=== PATIENT | female | born 1985 | race Caucasian/White ===

== ENCOUNTER 2017-07-09 23:47 | Emergency (ER) | payer MEDICAID ==
[~2017-07-09] VITALS: Ht 165.1 cm; Wt 96.4 kg
[~2017-07-09 23:47] MED LIST: AZIT250T74 PO; LISI-363 PO; MOBI15TA PO; TRAM50 PO
[2017-07-09 23:54] VITALS: BP 196/99; PULSE 116; RESP 18; TEMP 97; O2SAT 98
--- NOTE | 2017-07-10 00:24 | PD ---
HPI Chief Complaint: Flank/Kidney Pain Time Seen by Provider: 00:19 Travel History International Travel<30 days: No Contact w/Intl Traveler<30days: No Traveled to known affect area: No History of Present Illness HPI The patient is a 31-year-old female who complains of sudden onset of sharp left flank pain radiating to the left UVJ/pelvic area at 11 PM tonight. The patient does have a history of hysterectomy and cannot be . She also had a right oophorectomy. This pain feels similar to a ruptured right ovarian cyst that she has had in the past. She has never had a kidney stone but almost everybody in her family has had one. She denies any dysuria, frequency or urgency. He denies any fever. PFSH Past Medical History Blood Disorders: No Depression: Yes Diminished Hearing: No Hypertension: Yes Psychiatric: Yes (sent to act 03/19) ?: Not : 2 Para: 2 Tubal Ligation: Yes Past Surgical History Section: Yes (X 2) Cholecystectomy: Yes Gynecologic Surgery: Yes (LEEP) Hysterectomy: Yes Social History Alcohol Use: No Tobacco Use: No Substance Use: No Allergies-Medications (Allergen,Severity, Reaction): Coded Allergies: prochlorperazine (Unverified Allergy, Severe, EPS, 02/08/17) Reported Meds & Prescriptions Reported Meds & Active Scripts Active Ultram (Tramadol HCl) 50 Mg Tab 50 Mg PO Q6H PRN FOR PAIN Mobic (Meloxicam) 15 Mg Tab 15 Mg PO DAILY Zithromax (Azithromycin) 250 Mg Tab 4 Tab PO ONCE Reported Lisinopril 20 Mg Tab 20 Mg PO DAILY Review of Systems Except as stated in HPI: all other systems reviewed are Neg Physical Exam Narrative GENERAL: The patient is alert, oriented 3 in moderate apparent distress with her left flank/pelvic pain. Her vital signs show blood pressure 196/99 with heart rate of 116 but otherwise normal. SKIN: Focused skin assessment warm/dry. HEAD: Atraumatic. Normocephalic. EYES: Pupils equal and round. No scleral icterus. No injection or drainage. ENT: No nasal bleeding or discharge. Mucous membranes pink and moist. NECK: Trachea midline. No JVD. CARDIOVASCULAR: Regular rate and rhythm. No murmur appreciated. RESPIRATORY: No accessory muscle use. Clear to auscultation. Breath sounds equal bilaterally. GASTROINTESTINAL: Abdomen soft, with tenderness to direct palpation to the left of the umbilicus and left UVJ/pelvic area, nondistended. Hepatic and splenic margins not palpable. No guarding or rebound is present. MUSCULOSKELETAL: No obvious deformities. No clubbing. No cyanosis. No edema. NEUROLOGICAL: Awake and alert. No obvious cranial nerve deficits. Motor grossly within normal limits. Normal speech. PSYCHIATRIC: Appropriate mood and affect; insight and judgment normal. Data Data Last Documented VS Vital Signs Date Time Temp Pulse Resp B/P (MAP) Pulse Ox O2 Delivery O2 Flow Rate FiO2 07/10/17 00:19 20 07/09/17 23:54 97.0 116 196/99 (131) 98 Orders Orders Complete Blood Count With Diff (07/10/17:19) Basic Metabolic Panel (Bmp) (07/10/17 00:19) Urinalysis - C+S If Indicated (07/10/17:19) Ct Abd/Pel W/O Iv Contrast (07/10/17:19) Ecg Monitoring (07/10/17:19) Iv Access Insert/Monitor (07/10/17:19) Hydromorphone Pf Inj (Dilaudid Pf Inj) (07/10/17 00:30) Ketorolac Inj (Toradol Inj) (07/10/17 00:30) Ondansetron Inj (Zofran Inj) (07/10/17 00:30) Sodium Chloride 0.9% Flush (Ns Flush) (07/10/17 00:30) Urine Culture (07/10/17 00:15) Labs Laboratory Tests Test 07/10/17 00:15 White Blood Count 8.3 TH/MM3 Red Blood Count 4.11 MIL/MM3 Hemoglobin 12.0 GM/DL Hematocrit 37.5 % Mean Corpuscular Volume 91.1 FL Mean Corpuscular Hemoglobin 29.2 PG Mean Corpuscular Hemoglobin Concent 32.1 % Red Cell Distribution Width 13.4 % Platelet Count 360 TH/MM3 Mean Platelet Volume 7.7 FL Neutrophils (%) (Auto) 53.0 % Lymphocytes (%) (Auto) 36.3 % Monocytes (%) (Auto) 6.5 % Eosinophils (%) (Auto) 2.7 % Basophils (%) (Auto) 1.5 % Neutrophils # (Auto) 4.5 TH/MM3 Lymphocytes # (Auto) 3.0 TH/MM3 Monocytes # (Auto) 0.5 TH/MM3 Eosinophils # (Auto) 0.2 TH/MM3 Basophils # (Auto) 0.1 TH/MM3 CBC Comment DIFF FINAL Differential Comment Urine Color YELLOW Urine Turbidity SLIGHT Urine pH 7.5 Urine Specific [place] 1.011 Urine Protein NEG mg/dL Urine Glucose (UA) NEG mg/dL Urine Ketones NEG mg/dL Urine Occult Blood NEG Urine Nitrite NEG Urine Bilirubin NEG Urine Leukocyte Esterase NEG Urine RBC 0-3 /hpf Urine WBC 3-5 /hpf Urine Squamous Epithelial Cells 0-5 /hpf Urine Bacteria MOD /hpf Microscopic Urinalysis Comment CULTURE INDICATED Blood Urea Nitrogen 9 MG/DL Creatinine 0.72 MG/DL Random Glucose 95 MG/DL Calcium Level 8.7 MG/DL Sodium Level 137 MEQ/L Potassium Level 3.5 MEQ/L Chloride Level 100 MEQ/L Carbon Dioxide Level 31.5 MEQ/L Anion Gap 6 MEQ/L Estimat Glomerular Filtration Rate 95 ML/MIN [facility] Medical Decision Making Medical Screen Exam Complete: Yes Emergency Medical Condition: Yes Medical Record Reviewed: Yes Interpretation(s) The CT abdomen/pelvis without IV contrast shows no acute findings. She is apparently status post cholecystectomy. The CBC is normal. Urinalysis is normal except for moderate bacteria. Culture is indicated on the urine. The basic metabolic profile is normal. Differential Diagnosis Urinary stone, ovarian cyst, ovarian torsion-unlikely, diverticulitis, colitis, urinary tract infection today cystitis, UTI-pyelonephritis Narrative Course The patient has bacteria in the urine and her urine is borderline normal for white cells-3-5 per high-power field. Culture is indicated and she will be treated as a urinary tract infection with Cipro 500 mg twice daily for 10 days. She will get Percocet 5 for pain and Zofran for nausea. She needs to follow- up with her primary care physician and increased liquid intake. Additional Instructions: It is important to increase your fluid intake to establish a good flow across your kidneys. The Percocet can make you dizzy so do not drink alcohol or drive on the Percocet. Zofran is one tablet every 4-6 hours as needed for nausea. Follow-up with your primary care physician next week. Med/Other Pt SpecificInfo: Prescription(s) given Scripts Ciprofloxacin (Cipro) 500 Mg Tab 500 MG PO BID for Infection for 10 Days, #20 TAB 0 Refills Prov: Jayro Gallagher MD 07/10/17 Ondansetron (Zofran) 4 Mg Tab 4 MG PO Q6HR Y for NAUSEA OR VOMITING, #30 TAB 0 Refills Prov: Jayro Gallagher MD 07/10/17 Oxycodone-Acetaminophen (Percocet) 5-325 mg Tab 1-2 TAB PO Q6H Y for PAIN, #30 TAB 0 Refills Prov: Jayro Gallagher MD 07/10/17 Disposition: 01 DISCHARGE HOME Condition: Stable Jayro Gallagher MD Jul 10, 2017 00:24
[2017-07-10] MEDS ORDERED: SODIUM CHLORIDE 0.9% FLUSH 10 ML FLUSH IVF PRN (00:30)
[2017-07-10] MEDS ORDERED: ONDANSETRON HCL 4 MG/2 ML VIAL IV PUSH ONE (00:30)
[2017-07-10] MEDS ORDERED: HYDROmorphone HCL PF 2 MG/ML VIAL IVS ONE (00:30)
[2017-07-10] MEDS ORDERED: KETOROLAC TROMETHAMINE 30 MG/ML (IVP) VIAL IV PUSH ONE (00:30)
[2017-07-10 00:33] LABS: BILIRUBIN, URINE NEG (NEG); BLOOD, URINE NEG (NEG); GLUCOSE,URINE NEG (NEG); KETONE, URINE NEG (NEG); NITRITE,URINE NEG (NEG); PH, URINE 7.5 (5.0-8.5); URINE LEUKOCYTE ESTERASE NEG (NEG)
[2017-07-10 00:35] LABS: AUTOMATED NEUTROPHIL # 4.5 TH/MM3 (1.8-7.7); BASOPHIL # 0.1 TH/MM3 (0-0.2); BASOPHIL % 1.5 % (0.0-2.0); EOSINOPHIL # 0.2 TH/MM3 (0-0.4); EOSINOPHIL % 2.7 % (0.0-4.0); HEMATOCRIT 37.5 % (35.0-46.0); LYMPH % 36.3 % (9.0-44.0); MEAN CELL VOLUME 91.1 FL (80.0-100.0); MEAN CORPUSCULAR HEMOGLOBIN 29.2 PG (27.0-34.0); MEAN CORPUSCULAR HGB CONC 32.1 % (32.0-36.0); MEAN PLATELET VOLUME 7.7 FL (7.0-11.0); MONO % 6.5 % (0.0-8.0); MONOCYTE # 0.5 TH/MM3 (0-0.9); PLATELET COUNT 360 TH/MM3 (150-450); RED BLOOD COUNT 4.11 MIL/MM3 (4.00-5.30); RED CELL DISTRIBUTION WIDTH 13.4 % (11.6-17.2); WHITE BLOOD COUNT 8.3 TH/MM3 (4.0-11.0)
[2017-07-10 00:40] LABS: URINE COLOR YELLOW (YELLW/STRAW)
[2017-07-10 00:41] LABS: BACTERIA, URINE MOD /hpf; RBC, URINE 0-3 /hpf (0-3); SQUAMOUS EPITHELIAL CELL URINE 0-5 /hpf (0-5)
--- NOTE | 2017-07-10 00:55 | RADRPT ---
EXAM DATE/TIME: 07/10/2017 00:31 [facility] COMPARISON: No previous studies available for comparison. INDICATIONS : Left lower quadrant pain ORAL CONTRAST: No oral contrast ingested. RADIATION DOSE: 23.30 CTDIvol (mGy) MEDICAL HISTORY : Hypertension. SURGICAL HISTORY : Cholecystectomy. partial hysterectomy ENCOUNTER: Initial ACUITY: 1 day PAIN SCALE: 9/10 LOCATION: Left lower quadrant TECHNIQUE: Volumetric scanning of the abdomen and pelvis was performed. Using automated exposure control and ad justment of the mA and/or kV according to patient size, radiation dose was kept as low as reasonably achievable to obtain optimal diagnostic quality images. DICOM format image data is available electro nically for review and comparison. The lack of IV contrast limits the diagnosis for certain organ pa thology. FINDINGS: LOWER LUNGS: The visualized lower lungs are clear. LIVER: Homogeneous density without lesion. There is no dilation of the biliary tree. No gallbladder, surgi cortez removed.. SPLEEN: Normal size without lesion. PANCREAS: Within normal limits. KIDNEYS: Normal in size and shape. There is no mass, stone, or hydronephrosis. ADRENAL GLANDS: Within normal limits. VASCULAR: There is no aortic aneurysm. BOWEL/MESENTERY: The stomach, small bowel, and colon demonstrate no acute abnormality. There is no free intraperitone al air or fluid. The appendix is unremarkable. There is stool throughout the colon. ABDOMINAL WALL: Within normal limits. RETROPERITONEUM: There is no lymphadenopathy. BLADDER: No wall thickening or mass. REPRODUCTIVE: Within normal limits. INGUINAL: There is no lymphadenopathy or hernia. MUSCULOSKELETAL: Within normal limits for patient age. CONCLUSION: 1. No calcified renal stones or hydronephrosis. 2. Status post cholecystectomy. 3. Unremarkable examination. Aureliano Araujo MD on July 10, 2017 at 0:50 Board Certified Radiologist. This report was verified electronically.
[2017-07-10 01:03] VITALS: RESP 20
[2017-07-10 01:06] LABS: BICARBONATE 31.5 MEQ/L (21.0-32.0); CALCIUM 8.7 MG/DL (8.5-10.1)
[2017-07-10 01:10] LABS: CREATININE 0.72 MG/DL (0.50-1.00)
[2017-07-10] MEDS ORDERED: PERC5TAB12 PO (02:01)
[2017-07-10] MEDS ORDERED: CIPR-9 PO (02:01)
[2017-07-10] MEDS ORDERED: ZOFR4TAB PO (02:01)
[2017-07-10] MEDS ORDERED: CIPROFLOXACIN 500 MG TAB PO ONE (02:15)
[2017-07-10 02:22] VITALS: BP 153/99
== END 2017-07-10 02:39 | disposition home or self-care (01) ==
LOC: PHED 23:47
DX: N30.90 Cystitis, unspecified without hematuria (principal); B96.20 Unspecified Escherichia coli [E. coli] as the cause of diseases classified elsewhere; I10 Essential (primary) hypertension
CPT/HCPCS: 74176; 80048; 81001; 85025; 87077; 87086; 87186; 96374; 96375; 99285; J1170; J1885; J2405

== ENCOUNTER 2017-08-02 07:47 | Emergency (ER) | payer MEDICAID ==
[~2017-08-02] VITALS: Ht 167.6 cm; Wt 93.4 kg
[~2017-08-02 07:47] MED LIST changes: +CIPR-9 PO; +PERC5TAB12 PO; +ZOFR4TAB PO
[2017-08-02 07:51] VITALS: BP 195/123; PULSE 120; RESP 18; TEMP 97.6; O2SAT 99
[2017-08-02] MEDS ORDERED: HYDR-3583 PO (08:08)
[2017-08-02] MEDS ORDERED: IBUP1TAB7 PO (08:08)
[2017-08-02] MEDS ORDERED: CITA20TA4 PO (08:08)
[2017-08-02] MEDS ORDERED: SODIUM CHLOR 0.9% 1000 ML INJ 1,000 ML IV SCH (08:16)
[2017-08-02 08:20] VITALS: BP 156/104; PULSE 132; RESP 22; O2SAT 98
[2017-08-02 08:30] LABS: AUTOMATED NEUTROPHIL # 6.6 TH/MM3 (1.8-7.7); BASOPHIL # 0.1 TH/MM3 (0-0.2); BASOPHIL % 0.5 % (0.0-2.0); EOSINOPHIL # 0.2 TH/MM3 (0-0.4); EOSINOPHIL % 1.7 % (0.0-4.0); HEMATOCRIT 38.7 % (35.0-46.0); HEMOGLOBIN 12.5 GM/DL (11.6-15.3); LYMPH % 25.2 % (9.0-44.0); LYMPHOCYTE # 2.5 TH/MM3 (1.0-4.8); MEAN CELL VOLUME 90.2 FL (80.0-100.0); MEAN CORPUSCULAR HEMOGLOBIN 29.1 PG (27.0-34.0); MEAN CORPUSCULAR HGB CONC 32.2 % (32.0-36.0); MEAN PLATELET VOLUME 7.8 FL (7.0-11.0); MONO % 6.3 % (0.0-8.0); MONOCYTE # 0.6 TH/MM3 (0-0.9); NEUT % 66.3 % (16.0-70.0); PLATELET COUNT 434 TH/MM3 (150-450); RED BLOOD COUNT 4.29 MIL/MM3 (4.00-5.30); RED CELL DISTRIBUTION WIDTH 13.2 % (11.6-17.2)
[2017-08-02] MEDS ORDERED: ONDANSETRON HCL 4 MG/2 ML VIAL IVP ONE (08:30)
[2017-08-02] MEDS ORDERED: KETOROLAC TROMETHAMINE 30 MG/ML (IVP) VIAL IVP ONE (08:30)
[2017-08-02] MEDS ORDERED: SODIUM CHLORIDE 0.9% FLUSH 10 ML FLUSH IV FLUSH PRN (08:30)
--- NOTE | 2017-08-02 08:36 | PD ---
HPI Chief Complaint: Flank/Kidney Pain Time Seen by Provider: 08:16 Travel History International Travel<30 days: No Contact w/Intl Traveler<30days: No Traveled to known affect area: No History of Present Illness HPI 31 year old female with history of pyelonephritis presents to the ED for evaluation of 8 out of 10 left sided sharp stabbing flank pain onset yesterday evening with multiple episodes of nausea and vomiting for the past two days with generalized weakness and chills. The pain is described as left back pain which radiates to her left abdomen and is worse with movement, she reports a history of similar pain which she was diagnosed with pyelonephritis several years prior. She has been having increase in urinary frequency, but denies dysuria, hematuria, and urinary urgency. 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 No other complaints. Risk Factors:History of pyelonephritis, "double kidney" Modifying Factors:[None] Associated sign and symptoms: nausea, vomiting, chills, urinary frequency PFSH Past Medical History Blood Disorders: No Depression: Yes Diminished Hearing: No Hypertension: Yes Musculoskeletal: Yes (Herniated disc) Psychiatric: Yes Tetanus Vaccination: < 5 Years Influenza Vaccination: No ?: Not : 2 Para: 2 Tubal Ligation: Yes Past Surgical History Section: Yes (X's 2) Cholecystectomy: Yes Gynecologic Surgery: Yes (LEEP) Hysterectomy: Yes Social History Alcohol Use: No Tobacco Use: No Substance Use: No Allergies-Medications (Allergen,Severity, Reaction): Coded Allergies: morphine (Verified Allergy, Severe, Face red/itchy, 08/02/17) Antihistamines - Alkylamine (Verified Adverse Reaction, Severe, See notes , 08/02/17) "I just don't do well with antihistimines." diphenhydramine (Verified Adverse Reaction, Severe, See notes, 08/02/17) "My jaw locked up, I couldn't move my arms and my eyes wandered to one side." prochlorperazine (Unverified Adverse Reaction, Severe, EPS, 08/02/17) tramadol (Verified Adverse Reaction, Severe, See notes, 08/02/17) "I just have a bad reaction to it" Uncoded Allergies: Steroids (Adverse Reaction, Severe, See notes, 08/02/17) "I took Prednisone one time and it made me sick for five days, vomitting and hives on my neck." Reported Meds & Prescriptions Reported Meds & Active Scripts Active Reported Hydrocodone-Acetaminophen 10-325 mg Tab 1 Tab PO BID Ibuprofen 800 Mg Tab 800 Mg PO QID Citalopram (Citalopram Hydrobromide) 20 Mg Tab 20 Mg PO DAILY Review of Systems Except as stated in HPI: all other systems reviewed are Neg Physical Exam Narrative GENERAL: Well developed female in ED, uncomfortable, mild distress secondary to pain SKIN: Warm and dry. HEAD: Atraumatic. Normocephalic. EYES: Pupils equal and round. No scleral icterus. No injection or drainage. ENT: No nasal bleeding or discharge. Mucous membranes pink and moist. NECK: Trachea midline. No JVD. Supple. CARDIOVASCULAR: Regular rate and rhythm. RESPIRATORY: No accessory muscle use. Clear to auscultation. Breath sounds equal bilaterally. GASTROINTESTINAL: Abdomen soft, left sided tenderness to palpation, nondistended. Hepatic and splenic margins not palpable. MUSCULOSKELETAL: Extremities without clubbing, cyanosis, or edema. No obvious deformities. Left sided CVA tenderness. NEUROLOGICAL: Awake and alert. No obvious cranial nerve deficits. Motor grossly within normal limits. Five out of 5 muscle strength in the arms and legs. Normal speech. PSYCHIATRIC: Appropriate mood and affect; insight and judgment normal. Data Data Last Documented VS Vital Signs Date Time Temp Pulse Resp B/P (MAP) Pulse Ox O2 Delivery O2 Flow Rate FiO2 08/02/17 09:45 97.6 132 22 156/104 (121) 98 Room Air Orders Orders Urinalysis - C+S If Indicated (08/02/17 07:56) Complete Blood Count With Diff (08/02/17 08:16) Comprehensive Metabolic Panel (08/02/17 08:16) Lipase (08/02/17 08:16) Iv Access Insert/Monitor (08/02/17 08:16) Ecg Monitoring (08/02/17 08:16) Oximetry (08/02/17 08:16) Ondansetron Inj (Zofran Inj) (08/02/17 08:30) Sodium Chlor 0.9% 1000 Ml Inj (Ns 1000 M (08/02/17 08:16) Sodium Chloride 0.9% Flush (Ns Flush) (08/02/17 08:30) Ketorolac Inj (Toradol Inj) (08/02/17 08:30) Ct Abd/Pel W/O Iv Contrast (08/02/17 08:28) Morphine Inj (Morphine Inj) (08/02/17 09:00) Diphenhydramine Inj (Benadryl Inj) (08/02/17 09:00) Urine Culture (08/02/17 09:55) Drug Screen, Random Urine (08/02/17 10:13) Sodium Chlor 0.9% 1000 Ml Inj (Ns 1000 M (08/02/17 10:30) Tramadol-Acetamin 37.5-325 Mg (Ultracet (08/02/17 10:45) Ed Discharge Order (08/02/17 10:59) Labs Laboratory Tests Test 08/02/17 08:20 08/02/17 09:55 White Blood Count 10.0 TH/MM3 Red Blood Count 4.29 MIL/MM3 Hemoglobin 12.5 GM/DL Hematocrit 38.7 % Mean Corpuscular Volume 90.2 FL Mean Corpuscular Hemoglobin 29.1 PG Mean Corpuscular Hemoglobin Concent 32.2 % Red Cell Distribution Width 13.2 % Platelet Count 434 TH/MM3 Mean Platelet Volume 7.8 FL Neutrophils (%) (Auto) 66.3 % Lymphocytes (%) (Auto) 25.2 % Monocytes (%) (Auto) 6.3 % Eosinophils (%) (Auto) 1.7 % Basophils (%) (Auto) 0.5 % Neutrophils # (Auto) 6.6 TH/MM3 Lymphocytes # (Auto) 2.5 TH/MM3 Monocytes # (Auto) 0.6 TH/MM3 Eosinophils # (Auto) 0.2 TH/MM3 Basophils # (Auto) 0.1 TH/MM3 CBC Comment DIFF FINAL Differential Comment Blood Urea Nitrogen 6 MG/DL Creatinine 0.73 MG/DL Random Glucose 90 MG/DL Total Protein 9.2 GM/DL Albumin 4.0 GM/DL Calcium Level 9.2 MG/DL Alkaline Phosphatase 77 U/L Aspartate Amino Transf (AST/SGOT) 18 U/L Alanine Aminotransferase (ALT/SGPT) 30 U/L Total Bilirubin 0.4 MG/DL Sodium Level 136 MEQ/L Potassium Level 3.4 MEQ/L Chloride Level 101 MEQ/L Carbon Dioxide Level 29.5 MEQ/L Anion Gap 6 MEQ/L Estimat Glomerular Filtration Rate 94 ML/MIN Lipase 169 U/L Urine Collection Type CLEAN CATCH Urine Color YELLOW Urine Turbidity CLEAR Urine pH 7.0 Urine Specific [place] 1.016 Urine Protein NEG mg/dL Urine Glucose (UA) NEG mg/dL Urine Ketones NEG mg/dL Urine Occult Blood NEG Urine Nitrite NEG Urine Bilirubin NEG Urine Leukocyte Esterase NEG Urine Squamous Epithelial Cells 6-8 /hpf Urine Amorphous Sediment FEW Urine Bacteria MOD /hpf Microscopic Urinalysis Comment CULTURE INDICATED Urine Collection Time 0955 Urine Opiates Screen NEG Urine Barbiturates Screen NEG Urine Amphetamines Screen NEG Urine Benzodiazepines Screen POS Urine Cocaine Screen NEG Urine Cannabinoids Screen NEG MDM Medical Decision Making Medical Screen Exam Complete: Yes Emergency Medical Condition: Yes Medical Record Reviewed: Yes Interpretation(s) Laboratory Tests Test 08/02/17 08:20 08/02/17 09:55 Blood Urea Nitrogen 6 MG/DL (7-18) Total Protein 9.2 GM/DL (6.4-8.2) Potassium Level 3.4 MEQ/L (3.5-5.1) Urine Squamous Epithelial Cells 6-8 /hpf (0-5) Urine Bacteria MOD /hpf (NONE) Urine Benzodiazepines Screen POS (NEG) Last 24 hours Impressions Abdomen/Pelvis CT 08/02/17 0828 Signed Impressions: Service Date/Time: Wednesday, August 02, 2017 09:17 - CONCLUSION: 1. No acute obstructive uropathy. 2. Mild degenerative changes and scoliosis of the lumbar spine. Thomas Freitas MD Differential Diagnosis Pyelonephritis vs renal stone vs musculoskeletal versus viral syndrome Narrative Course Lab work did not show significant metabolic issues or significant leukocytosis. UA was negative for UTI. CAT scan did not show any signs of acute intra- abdominal processes or renal colic. At this point, I have tried Toradol for pain but the patient states that she was still uncomfortable, was given morphine for pain. However, she states that she started feeling flushing and itchiness in her face. On reevaluation of her after the reaction she states, I did not see any signs of rashes or any signs of angioedema. I have ordered Benadryl as a precaution but the patient states that she has had an allergic reaction to Benadryl and Benadryl was held. I have offered to give her Solu- Medrol but she states that she has had an allergic reaction to steroids as well. At that point, I have offered to give her tramadol for pain but she is refusing that as well stating that she has had a adverse reaction to that as well at her doctor's office, states that what works for her is Dilaudid and opiate medications by mouth which her doctor has been giving her. At this point , it appears that she has had some previous visits as well for abdominal pain and this may be an acute on chronic abdominal pain. I do not see any signs of other acute processes. IV fluids have been ordered for the patient and she is doing well, no further vomiting or other issues in the ER. My plan would be to release her with follow-up to primary care physician. We will try some Bentyl with her since she has not had previous experience of allergic reaction with this medication. Return for any new issues or worsening symptoms as necessary. The plan has been discussed with her and she states understanding. She was observed in the ER for 3 hours and did not have any further signs of allergic reaction in the ER. I would hold off on giving her any Benadryl or steroids at this point as an outpatient since she states that she has had allergic reactions to all of these. She should return for any signs of worsening in rash or throat swelling. However, I suspect that the symptoms may be more likely a side effect of morphine rather than her allergic reaction. Diagnosis Primary Impression: Abdominal pain Med/Other Pt SpecificInfo: Prescription(s) given Scripts Ondansetron Odt (Zofran Odt) 4 Mg Tab 4 MG SL Q6HR Y for Nausea/Vomiting, #7 TAB 0 Refills Prov: Philippe Montana MD 08/02/17 Dicyclomine (Bentyl) 10 Mg Cap 10 MG PO TID Y for Bowel Management, #15 CAP 0 Refills Prov: Philippe Montana MD 08/02/17 Disposition: 01 DISCHARGE HOME Condition: Stable Philippe Montana MD Aug 02, 2017 08:36
[2017-08-02 08:48] LABS: CHLORIDE 101 MEQ/L (98-107); SODIUM (NA) 136 MEQ/L (136-145)
[2017-08-02 08:52] LABS: BICARBONATE 29.5 MEQ/L (21.0-32.0); BLOOD UREA NITROGEN 6 MG/DL (7-18); CALCIUM 9.2 MG/DL (8.5-10.1); GLUCOSE,RANDOM 90 MG/DL (74-106)
[2017-08-02 08:55] LABS: ALT (GPT) 30 U/L (10-53); AST (GOT) 18 U/L (15-37); CREATININE 0.73 MG/DL (0.50-1.00); GLOMERULAR FILTRATION RATE 94 ML/MIN (>89)
[2017-08-02 08:57] LABS: TOTAL BILIRUBIN ADULT 0.4 MG/DL (0.2-1.0); TOTAL PROTEIN 9.2 GM/DL (6.4-8.2)
[2017-08-02 08:58] LABS: ALKALINE PHOSPHATASE 77 U/L (45-117)
[2017-08-02] MEDS: diphenhydrAMINE HCL 50 MG/ML VIAL IV PUSH ONE ×2 (08:58→09:00)
[2017-08-02] MEDS ORDERED: MORPHINE SULFATE 2 MG/ML INJ IV PUSH ONE (09:00)
--- NOTE | 2017-08-02 09:43 | RADRPT ---
EXAM DATE/TIME: 08/02/2017 09:17 [facility] COMPARISON: CT ABDOMEN & PELVIS W/O CONTRAST, July 10, 2017, 0:31. INDICATIONS : Left flank pain with urinary frequency since last night. ORAL CONTRAST: No oral contrast ingested. RADIATION DOSE: 23.97 CTDIvol (mGy) MEDICAL HISTORY : Hypertension. Pyelonephritis. Left "double kidney". SURGICAL HISTORY : Cholecystectomy. Tubal ligation.Hysterectomy. ENCOUNTER: Initial ACUITY: 2 days PAIN SCALE: 10/10 LOCATION: Left flank TECHNIQUE: Volumetric scanning of the abdomen and pelvis was performed. Using automated exposure control and ad justment of the mA and/or kV according to patient size, radiation dose was kept as low as reasonably achievable to obtain optimal diagnostic quality images. DICOM format image data is available electro nically for review and comparison. FINDINGS: LOWER LUNGS: The visualized lower lungs are clear. LIVER: The liver is mildly prominent. Homogeneous density without lesion. There is no dilation of the bilia ry tree. Status post cholecystectomy. No calcified gallstones. SPLEEN: Normal size without lesion. PANCREAS: Within normal limits. KIDNEYS: Normal in size and shape. There is no mass, stone, or hydronephrosis. 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 ADRENAL GLANDS: Within normal limits. VASCULAR: There is no aortic aneurysm. BOWEL/MESENTERY: The stomach, small bowel, and colon demonstrate no acute abnormality. There is no free intraperitone al air or fluid. The appendix is normal. ABDOMINAL WALL: Within normal limits. RETROPERITONEUM: There is no lymphadenopathy. BLADDER: No wall thickening or mass. REPRODUCTIVE: Within normal limits. INGUINAL: There is no lymphadenopathy or hernia. MUSCULOSKELETAL: Mild scoliosis and degenerative changes are noted involving the lumbar spine. CONCLUSION: 1. No acute obstructive uropathy. 2. Mild degenerative changes and scoliosis of the lumbar spine. Thomas Freitas MD on August 02, 2017 at 9:36 Board Certified Radiologist. This report was verified electronically.
[2017-08-02 09:45] VITALS: BP 156/104; PULSE 132; RESP 22; TEMP 97.6; O2SAT 98
[2017-08-02 10:00] LABS: BILIRUBIN, URINE NEG (NEG); BLOOD, URINE NEG (NEG); GLUCOSE,URINE NEG (NEG); KETONE, URINE NEG (NEG); NITRITE,URINE NEG (NEG); URINE LEUKOCYTE ESTERASE NEG (NEG)
[2017-08-02 10:05] LABS: URINE COLOR YELLOW (YELLW/STRAW)
[2017-08-02 10:07] LABS: AMORPHOUS SEDIMENT, URINE FEW; BACTERIA, URINE MOD /hpf
[2017-08-02] MEDS ORDERED: SODIUM CHLOR 0.9% 1000 ML INJ 1,000 ML IV ONE (10:30)
[2017-08-02] MEDS ORDERED: traMADol/ACETAMINOPHEN 37.5/325 1 TAB PO ONE (10:45)
[2017-08-02] MEDS ORDERED: ZOFR4TAB3 SL (11:07)
[2017-08-02] MEDS ORDERED: DICY10 PO (11:07)
== END 2017-08-02 11:20 | disposition home or self-care (01) ==
LOC: PHED 07:47
DX: R10.9 Unspecified abdominal pain (principal); F32.9 Major depressive disorder, single episode, unspecified; I10 Essential (primary) hypertension; Z88.5 Allergy status to narcotic agent; Z88.8 Allergy status to other drugs, medicaments and biological substances
CPT/HCPCS: 74176; 80053; 80307; 81001; 83690; 85025; 87086; 96361; 96374; 96375; 99284; J1885; J2270; J2405; J7030; J1200